=== PATIENT | male | born 1950 | race Caucasian/White ===

== ENCOUNTER 2022-05-09 08:39 | Observation (INO) ==
[2022-05-09 09:33] LABS: ABS Basophils 0.1 10^3/ul (0-0.2); ABS Monocytes 0.4 10^3/ul (0-0.8); ABS Neutrophils 7.4 10^3/ul (1.5-7.7); Eosinophil % 0.2 %; Hematocrit 36 % (42-52); Hemoglobin 11.8 g/dL (14.0-18.0); Lymphocyte % 11.2 %; Mean Corpuscular HGB Conc 33 g/dL (31-36); Mean Corpuscular Hemoglobin 28 pg (27-31); Mean Corpuscular Volume 85 fL (80-94); Mean Platelet Volume 9.6 fL (7.4-10.4); Nucleated Red Blood Cells % 0.1; Platelet Count 216 10^3/uL (150-450); Red Blood Count 4.26 10^6 /uL (4.18-5.48); Red Cell Distribution Width 16 % (10-15); White Blood Count 8.9 10^3/uL (3.5-10.8)
[2022-05-09 10:20] LABS: Albumin 4.5 g/dL (3.2-5.2); Albumin/Globulin Ratio 1.6 (1-3); Globulin 2.8 g/dL (2-4); Potassium 4.2 mmol/L (3.5-5.0); Total Bilirubin 0.3 mg/dL (0.2-1.0); Total Protein 7.3 g/dL (6.4-8.9); eGFR CKD-EPI 87.2 (>60)
[2022-05-09] MEDS ORDERED: Midazolam 5 mg/5 ml VIAL 1 mg/ml 5 ml VIAL (5 mg) ONE (11:45)
[2022-05-09] MEDS ORDERED: fentaNYL 100 mcg/2 ml 50 MCG/ML VIAL ONE (11:45)
[2022-05-09] MEDS ORDERED: Ondansetron 4 mg VIAL 2 MG/ML 2 ml VIAL IV PRN (14:26)
[2022-05-09] MEDS ORDERED: Albuterol HFA INHALER 8 gm MDI INH PRN (14:30)
[2022-05-09 15:14] LABS: Ferritin 5.4 ng/mL (24-336)
[2022-05-09] MEDS ORDERED: Iron Sucrose 200 MG in NS 0.9% 100 ml BAG 100 ML IVPB ONE (17:09)
[2022-05-09 19:01] LABS: Hematocrit 35 % (42-52); Hemoglobin 11.2 g/dL (14.0-18.0)
[2022-05-09] MEDS: Lactated Ringers 1000 ml BAG 1,000 ML IV SCH (20:02)
[2022-05-10 06:14] LABS: Hematocrit 31 % (42-52)
[2022-05-10] MEDS: Lactated Ringers 1000 ml BAG 1,000 ML IV SCH ×2 (06:20→13:44)
[2022-05-10 08:59] LABS: Hematocrit 32 % (42-52); Hemoglobin 10.2 g/dL (14.0-18.0)
[2022-05-10 11:55] VITALS: BP 96/52
[2022-05-10] MEDS ORDERED: Lactated Ringers 500 ml BAG 500 ML IV ONE (12:38)
== END 2022-05-10 15:00 ==
LOC: EDHOLD 08:39 → ED 08:39 → SUATTDRO 14:26 → EDHOLD 17:28 → MED 17:56
PROVIDERS: ADMIT Internal Medicine; ATTEND Internal Medicine

== ENCOUNTER 2023-02-20 13:41 | Inpatient (IN) ==
[2023-02-20] MEDS ORDERED: Lactated Ringers 1000 ml BAG 1,000 ML IV ONE (13:55)
[2023-02-20 14:49] LABS: ABS Lymphocytes 0.9 10^3/uL (1.0-4.8); ABS Monocytes 0.5 10^3/uL (0.0-1.1); Hematocrit 45.4 % (38-53); Hemoglobin 15.1 g/dL (13.2-16.3); Lymphocyte % 8.2 %; Mean Corpuscular Hemoglobin 30.7 pg (27-33); Mean Corpuscular Hgb Conc 33.3 g/dL (31-36); Mean Corpuscular Volume 92.4 fL (80-97); Mean Platelet Volume 8.7 fL (7.5-11.2); Platelet Count 255 10^3/uL (150-450); Red Blood Count 4.91 10^6/uL (4.06-5.63); Red Cell Distribution Width 14.8 % (12-17); White Blood Count 11.5 10^3/uL (3.6-10.2)
[2023-02-20 14:59] LABS: Activated Partial Thrombo Time 32.9 seconds (26.0-38.0); INR 1.1 (0.88-1.18)
[2023-02-20] MEDS ORDERED: Al Hydrox/Mg Hydrox/Simet LIQ 30 ML UDC PO ONE (15:01)
[2023-02-20 15:13] LABS: Albumin 4.7 g/dL (3.2-5.2); Albumin/Globulin Ratio 1.6 (1-3); C Reactive Protein 8.28 mg/L (<8.01); Creatinine, Serum 0.77 mg/dL (0.67-1.17); Potassium 3.5 mmol/L (3.5-5.0); Total Bilirubin 0.6 mg/dL (0.2-1.0); Total Protein 7.7 g/dL (6.4-8.9); eGFR CKD-EPI 95.7 (>60)
[2023-02-20] MEDS ORDERED: Ondansetron 4 mg VIAL 2 MG/ML 2 ml VIAL IV ONE (16:00)
[2023-02-20 16:12] LABS: High Sensitivity Troponin 1 Hr 4 pg/mL (<20)
[2023-02-20] MEDS ORDERED: Iohexol 350 (CONTRAST) 500 ML MDV IV ONE (16:22)
[2023-02-20] MEDS ORDERED: Sodium Phosphate ADULT ENEMA 133 ML BTL PR ONE (16:46)
[2023-02-20] MEDS ORDERED: Pantoprazole VIAL 40 MG VIAL IV ONE (17:14)
[2023-02-21] MEDS ORDERED: NF: Albuterol/Ipratropium RESP(NF) MDI (Combivent Respimat) INH PRN (05:13)
[2023-02-21 05:23] LABS: ABS Lymphocytes 1.3 10^3/uL (1.0-4.8); ABS Monocytes 1.2 10^3/uL (0.0-1.1); ABS Neutrophils 10.9 10^3/uL (1.5-7.6); Eosinophil % 0.1 %; Hematocrit 41.8 % (38-53); Hemoglobin 14.2 g/dL (13.2-16.3); Lymphocyte % 9.8 %; Mean Corpuscular Hemoglobin 31.5 pg (27-33); Mean Corpuscular Hgb Conc 33.9 g/dL (31-36); Mean Corpuscular Volume 92.9 fL (80-97); Mean Platelet Volume 8.9 fL (7.5-11.2); Platelet Count 240 10^3/uL (150-450); Red Cell Distribution Width 14.6 % (12-17); White Blood Count 13.5 10^3/uL (3.6-10.2)
[2023-02-21 05:32] LABS: Calcium 9.1 mg/dL (8.6-10.3); Creatinine, Serum 0.76 mg/dL (0.67-1.17); Potassium 3.4 mmol/L (3.5-5.0); eGFR CKD-EPI 96.1 (>60)
[2023-02-21] MEDS ORDERED: Lactated Ringers 1000 ml BAG 1,000 ML IV ONE (08:05)
[2023-02-21] MEDS ORDERED: Potassium EFFERVES 25 meq TAB PO ONE (08:59)
[2023-02-21] MEDS: Pantoprazole VIAL 40 MG VIAL IV SCH ×2 (09:31→23:02)
[2023-02-21] MEDS ORDERED: Mineral Oil ENEMA 118 ML/BOTTLE BOTTLE PR ONE ×2 (11:41→21:00)
[2023-02-21] MEDS ORDERED: Midazolam 10 mg/10 ml VIAL 1 mg/ml 10 ml VIAL (10 mg) ONE (14:17)
[2023-02-21] MEDS ORDERED: fentaNYL 100 mcg/2 ml 50 MCG/ML VIAL ONE (14:17)
[2023-02-22 05:04] LABS: Urine Appearance Cloudy; Urine Bilirubin Negative (Negative); Urine Blood 3+ (Negative); Urine Color Yellow; Urine Glucose Negative (Negative); Urine Ketones Trace (Negative); Urine Nitrite Negative (Negative); Urine Protein 1+(30 mg/dL) (Negative); Urine Specific Gravity 1.026 (1.002-1.030); Urine Urobilinogen Negative (Negative)
[2023-02-22 05:18] LABS: Urine Bacteria Absent (Absent); Urine Red Blood Cell 3+(>10/hpf) (Absent); Urine White Blood Cell 3+(>20/hpf) (Absent)
[2023-02-22 05:55] LABS: ABS Eosinophils 0.1 10^3/uL (0.0-0.5); ABS Lymphocytes 2.1 10^3/uL (1.0-4.8); ABS Monocytes 0.7 10^3/uL (0.0-1.1); ABS Neutrophils 6.4 10^3/uL (1.5-7.6); Eosinophil % 0.7 %; Hematocrit 36.1 % (38-53); Hemoglobin 12.1 g/dL (13.2-16.3); Lymphocyte % 22.4 %; Mean Corpuscular Hemoglobin 31.4 pg (27-33); Mean Corpuscular Hgb Conc 33.7 g/dL (31-36); Mean Corpuscular Volume 93.4 fL (80-97); Mean Platelet Volume 8.8 fL (7.5-11.2); Platelet Count 208 10^3/uL (150-450); Red Blood Count 3.86 10^6/uL (4.06-5.63); Red Cell Distribution Width 14.6 % (12-17); White Blood Count 9.3 10^3/uL (3.6-10.2)
[2023-02-22 06:11] LABS: Calcium 8.7 mg/dL (8.6-10.3); Creatinine, Serum 0.79 mg/dL (0.67-1.17); Potassium 3.8 mmol/L (3.5-5.0)
[2023-02-22] MEDS ORDERED: Pantoprazole VIAL 40 MG VIAL IV SCH (07:30)
[2023-02-22] MEDS ORDERED: PEG 3000 GI LAVAGE 1 GALLON PO ONE (07:50)
[2023-02-22] MEDS ORDERED: Mineral Oil ENEMA 118 ML/BOTTLE BOTTLE PR ONE (09:58)
[2023-02-22 13:59] LABS: Hematocrit 35.7 % (38-53); Mean Corpuscular Hemoglobin 31.5 pg (27-33); Mean Corpuscular Hgb Conc 33.7 g/dL (31-36); Mean Corpuscular Volume 93.6 fL (80-97); Mean Platelet Volume 8.6 fL (7.5-11.2); Platelet Count 187 10^3/uL (150-450); Red Blood Count 3.82 10^6/uL (4.06-5.63); Red Cell Distribution Width 14.5 % (12-17); White Blood Count 7.6 10^3/uL (3.6-10.2)
[2023-02-22] MEDS: Senna TAB 8.6 mg TAB PO SCH (21:01)
[2023-02-23 05:57] LABS: Hemoglobin 11.6 g/dL (13.2-16.3); Mean Corpuscular Hemoglobin 31.9 pg (27-33); Mean Corpuscular Hgb Conc 35.1 g/dL (31-36); Mean Platelet Volume 8.7 fL (7.5-11.2); Platelet Count 193 10^3/uL (150-450); Red Blood Count 3.62 10^6/uL (4.06-5.63); Red Cell Distribution Width 14.6 % (12-17); White Blood Count 6.6 10^3/uL (3.6-10.2)
[2023-02-23 06:12] LABS: Calcium 8.5 mg/dL (8.6-10.3); Creatinine, Serum 0.75 mg/dL (0.67-1.17); Magnesium 1.7 mg/dL (1.9-2.7); Phosphorus 2.5 mg/dL (2.5-5.0); Potassium 3.4 mmol/L (3.5-5.0); eGFR CKD-EPI 96.5 (>60)
[2023-02-23] MEDS: Polyethylene Glycol 3350 17 GM PACKET PO SCH ×2 (08:39→21:02)
[2023-02-23] MEDS ORDERED: Albuterol/Ipratropium NEB.SOL (2.5/0.5 MG) 3 ML NEB.SOLN INH PRN (12:28)
[2023-02-23] MEDS ORDERED: Potassium Chlor 20 meq TAB.ER PO ONE (16:39)
[2023-02-23] MEDS: Senna TAB 8.6 mg TAB PO SCH (21:02)
[2023-02-24] MEDS ORDERED: Ferric Gluconate IV 250 MG in NS 0.9% 250 ml 200 ML IVPB ONE (07:35)
[2023-02-24] MEDS ORDERED: Polyethylene Glycol 3350 17 GM PACKET PO SCH (08:00)
[2023-02-24] MEDS ORDERED: Multivitamins/Minerals TAB PO SCH (09:00)
[2023-02-24] MEDS ORDERED: NON FORMULARY MED (Multivitamin Tablet) PO SCH (09:00)
[2023-02-24 09:45] VITALS: BP 103/63
[2023-02-24 11:27] LABS: Rapid COVID-19 Molecular Undetected (Undetected)
[2023-02-24] MEDS ORDERED: Potassium Chlor 20 meq TAB.ER PO ONE (12:51)
== END 2023-02-24 14:20 | DRG 382 ==
LOC: ED 13:41 → EDHOLD 19:07 → INTOOBSV 19:07 → SUATTDRO 19:07 → MED 02-21 11:23
PROVIDERS: ADMIT Hospitalist; ATTEND Internal Medicine